=== PATIENT | male | born 1950 | race Caucasian/White ===

== ENCOUNTER 2018-08-13 11:01 | Emergency (ER) | payer MEDICARE, OTHER ==
[~2018-08-13] VITALS: Ht 175.3 cm; Wt 102.5 kg
[~2018-08-13 11:01] MED LIST: ALDACTONE100 MG PO; CALCIUM 500 +1 EAC5 PO; CRESTOR10 MG PO; ENULOSE PO; FISH OIL 1,2001 EAC4 PO; LASIX 40 MG TAB40 MG PO; MULTIVITAMINS PO; NEURONTIN 300300 M1 PO; OXYCODONE HCL5 M1 PO; OXYIR5 MG PO; WELLBUTRIN 75 M75 M1 PO
[2018-08-13 12:21] VITALS: BP 127/72
== END 2018-08-13 12:22 | disposition home or self-care (01) ==
LOC: M.ERS 11:01
DX: S00.01XA Abrasion of scalp, initial encounter (principal); K21.9 Gastro-esophageal reflux disease without esophagitis; Z88.1 Allergy status to other antibiotic agents; W10.8XXA Fall (on) (from) other stairs and steps, initial encounter; Y93.89 Activity, other specified; Y92.89 Other specified places as the place of occurrence of the external cause; Y99.8 Other external cause status